=== PATIENT | female | born 1985 | race Caucasian/White ===

== ENCOUNTER → 2019-12-01 12:02 | Outpatient (CLI) | payer OTHER, SELFPAY ==
--- NOTE | 2019-12-01 12:35 | RAD_ITS ---
STUDY: HYSTEROSALPINGOGRAM. REASON FOR EXAM: Female, 34 years old. INFERTILITY, HX LEFT SIDE ECTOPIC WITH LEFT TUBE REMOVAL FLUOROSCOPY TIME (if supplied): ( 40 seconds ) minutes/seconds. 3 images were obtained. TECHNIQUE: A hysterosalpingogram was performed by the drop wirer. Imaging was provided. COMPARISON: None. FINDINGS: The left fallopian tube was not visualized in keeping with the patient''s history of prior salpingectomy. The right fallopian tube is patent with free spill. There is evidence of a septation in the fundal portion of uterus. RAD/Salpingogram IMPRESSION: Patency of the right fallopian tube with spill. Electronically Signed: Juan C Devine, at 13:10 EDT , Service support ,
== END ==
PROVIDERS: Referring Provider Obstetrics & Gynecology; Visit Provider Obstetrics & Gynecology
DX: N97.9 Female infertility, unspecified (principal)
CPT/HCPCS: 58340; 74740; Q9967